=== PATIENT | female | born 1940 | race Caucasian/White ===

== ENCOUNTER 2023-07-20 15:57 | Inpatient (IN) | payer OTHER, MEDICAID ==
[~2023-07-20] VITALS: Ht 147.3 cm; Wt 52.2 kg
[2023-07-20 15:58] VITALS: BP_SYST 156; PULSE 76; RESP 18; TEMP 97.5; O2SAT 93
[2023-07-20 16:52] LABS: BASOPHILS # (AUTO) 0.1 K/uL (0.0-0.2); BASOPHILS % (AUTO) 1.2 % (0.0-2.0); EOSINOPHILS # (AUTO) 0.2 K/uL (0.0-0.4); EOSINOPHILS % (AUTO) 3.3 % (0.0-4.0); HEMATOCRIT 39.4 % (36-48); HEMOGLOBIN 13.7 g/dL (12.0-16.0); LYMPHOCYTES # (AUTO) 1.1 K/uL (1.0-5.5); LYMPHOCYTES % (AUTO) 18.9 % (20.5-51.5); MEAN CORPUSCULAR HEMOGLOBIN 33 pg (27-31); MEAN CORPUSCULAR HGB CONC 35 % (32-36); MEAN CORPUSCULAR VOLUME 94 fL (79.0-98.0); MONOCYTES # (AUTO) 0.4 K/uL (0.0-1.0); MONOCYTES % (AUTO) 7.3 % (1.7-9.3); NEUTROPHILS # (AUTO) 3.9 K/uL (1.8-7.7); NEUTROPHILS % (AUTO) 69.3 % (40.0-70.0); PLATELET COUNT (AUTO) 242 K/uL (130-430); RED BLOOD CELL COUNT(AUTO) 4.19 MIL/uL (4.2-6.2); RED CELL DISTRIBUTION WIDTH 13.3 % (9.0-15.0); WHITE BLOOD COUNT (AUTO) 5.7 K/uL (4.8-10.8)
[2023-07-20 16:59] LABS: ANION GAP 14 (5-15); CALCIUM 9.3 mg/dL (8.4-11.0); CARBON DIOXIDE 22 mmol/L (23-29); CHLORIDE 106 mmol/L (98-107); GLUCOSE 197 mg/dL (74-106); POTASSIUM 3.4 mmol/L (3.5-5.1); SODIUM SERUM 142 mmol/L (136-145); UREA NITROGEN, BLOOD 24 mg/dL (8-21)
[2023-07-20 17:01] LABS: INR 1.2 (0.8-1.2); PROTHROMBIN TIME 12.7 SECS (9.5-12.5)
[2023-07-20 17:07] LABS: CHOLESTEROL 245 mg/dL (<200); HDL CHOLESTEROL 56 mg/dL (>55); TRIGLYCERIDES 263 mg/dL (30-150)
[2023-07-20 17:21] LABS: HEMOGLOBIN A1C 7.35 % (<5.7)
[2023-07-20 17:37] LABS: BILIRUBIN,URINE NEGATIVE (NEGATIVE); COLOR,URINE YELLOW (YELLOW); GLUCOSE,URINE 3+ (NEGATIVE); KETONES,URINE NEGATIVE (NEGATIVE); NITRITE, URINE NEGATIVE (NEGATIVE); PROTEIN URINE 3+ (NEGATIVE); UROBILINOGEN,URINE 0.2 (0.2-1.0)
[2023-07-20 17:53] LABS: BARBITURATE, URINE NEGATIVE (NEG <=200); BENZODIAZEPINE, URINE NEGATIVE (NEG <=150); CANNABINOID, URINE NEGATIVE (NEG <=50); COCAINE, URINE NEGATIVE (NEG <=150); METHAMPHETAMINES SCREEN,URINE NEGATIVE (NEG <=500); OPIATE, URINE NEGATIVE (NEG <=100); PHENCYCLIDINE SCREEN,URINE NEGATIVE (NEG <=25); UR TRICYCLIC ANTIDEPRESSANTS NEGATIVE (NEG <=300); URINE AMPHETAMINE NEGATIVE (NEG <=500); URINE METHADONE NEGATIVE (NEG <=200); URINE OXYCODONE SCREEN NEGATIVE (NEG <=100)
[2023-07-20 17:55] LABS: BLOOD, URINE TRACE (NEGATIVE)
[2023-07-20 17:56] LABS: CLARITY/URINE HAZY (CLEAR); LEUKOCYTE ESTERASE ,URINE 2+ (NEGATIVE)
[2023-07-20 17:57] LABS: BACTERIA,URINE MODERATE /HPF (None Seen); RBC,URINE NONE SEEN /HPF (0-3); WBC,URINE 20-50 /HPF (0-3)
[2023-07-20 17:58] LABS: MUCUS,URINE None Seen /LPF (None Seen)
[2023-07-20] MEDS ORDERED: amLODIPine BESYLATE 5 MG TABLET PO ONE (18:00)
[2023-07-20] MEDS ORDERED: ASPI-1393 PO (18:20)
[2023-07-20] MEDS ORDERED: HYDR-4038 PO (18:20)
[2023-07-20] MEDS ORDERED: GLIP5TAB26 PO (18:20)
[2023-07-20] MEDS ORDERED: EMPA10TA PO (18:20)
[2023-07-20] MEDS ORDERED: OXYB5TAB16 PO (18:20)
[2023-07-20] MEDS ORDERED: OMEG-30 PO (18:20)
[2023-07-20] MEDS ORDERED: METO50TA7 PO (18:20)
[2023-07-20] MEDS ORDERED: VITD400 PO (18:20)
[2023-07-20] MEDS ORDERED: AMLO5TAB4 PO (18:20)
[2023-07-20] MEDS ORDERED: ENAL-79 PO (18:20)
[2023-07-20] MEDS ORDERED: PRO40 PO (18:20)
[2023-07-20] MEDS ORDERED: CYAN100010 PO (18:20)
[2023-07-20] MEDS ORDERED: CLOPIDOGREL BISULFATE 75 MG TABLET PO ONE (19:00)
[2023-07-20] MEDS ORDERED: ATORVASTATIN 20 MG TABLET PO ONE (19:00)
[2023-07-20] MEDS ORDERED: ASPIRIN 81 MG TABLET(ECOTRIN) PO ONE (19:00)
[2023-07-20] MEDS ORDERED: ATORVASTATIN 20 MG TABLET ONE ×2 (20:02→20:04)
[2023-07-20] MEDS ORDERED: HYDROcodone/ACETAMIN 10-325 MG TAB PO PRN (22:15)
[2023-07-20] MEDS ORDERED: LORazepam 2 MG/ML VIAL IVP PRN (22:15)
[2023-07-20] MEDS ORDERED: NALOXONE HCL 0.4 MG/ML AMP (NARCAN) IVP PRN ×2 (22:15)
[2023-07-20] MEDS ORDERED: HYDROcodone/ACETAMIN 5-325 MG TAB (NORCO/ VICODIN) PO PRN (22:15)
[2023-07-20] MEDS ORDERED: ACETAMINOPHEN 325 MG TABLET PO PRN (22:15)
[2023-07-20] MEDS ORDERED: ONDANSETRON HCL 4 MG/2 ML VIAL IVP PRN (22:15)
[2023-07-21 04:41] LABS: EOSINOPHILS # (AUTO) 0.2 K/uL (0.0-0.4); EOSINOPHILS % (AUTO) 3.6 % (0.0-4.0); HEMATOCRIT 37.5 % (36-48); HEMOGLOBIN 12.8 g/dL (12.0-16.0); LYMPHOCYTES # (AUTO) 0.9 K/uL (1.0-5.5); MEAN CORPUSCULAR HEMOGLOBIN 32 pg (27-31); MEAN CORPUSCULAR HGB CONC 34 % (32-36); MEAN CORPUSCULAR VOLUME 94 fL (79.0-98.0); MONOCYTES # (AUTO) 0.4 K/uL (0.0-1.0); MONOCYTES % (AUTO) 9.2 % (1.7-9.3); NEUTROPHILS % (AUTO) 66.2 % (40.0-70.0); PLATELET COUNT (AUTO) 230 K/uL (130-430); RED BLOOD CELL COUNT(AUTO) 3.99 MIL/uL (4.2-6.2); RED CELL DISTRIBUTION WIDTH 13.2 % (9.0-15.0); WHITE BLOOD COUNT (AUTO) 4.5 K/uL (4.8-10.8)
[2023-07-21 05:01] LABS: ANION GAP 10 (5-15); CARBON DIOXIDE 26 mmol/L (23-29); CHLORIDE 106 mmol/L (98-107); CREATININE 1.04 mg/dL (0.55-1.30); GLUCOSE 122 mg/dL (74-106); PHOSPHORUS 4.2 mg/dL (2.7-4.5); POTASSIUM 3.2 mmol/L (3.5-5.1); SODIUM SERUM 142 mmol/L (136-145); UREA NITROGEN, BLOOD 19 mg/dL (8-21)
[2023-07-21 06:31] VITALS: BP_SYST 181; PULSE 82; RESP 20; TEMP 97.7; O2SAT 100
[2023-07-21 08:00] VITALS: BP_SYST 173; PULSE 69; RESP 18; TEMP 98.2; O2SAT 99
[2023-07-21] MEDS ORDERED: METOPROLOL SUCCINATE 50 MG TAB.SR.24H (TOPROL XL) PO SCH (09:00)
[2023-07-21] MEDS ORDERED: FISH OIL PO SCH (09:00)
[2023-07-21] MEDS ORDERED: DHA PO SCH (09:00)
[2023-07-21] MEDS ORDERED: [UNRECOGNIZED DRUG - OTHER] PO SCH (09:00)
[2023-07-21] MEDS ORDERED: OMEGA PO SCH (09:00)
[2023-07-21] MEDS ORDERED: hydrALAZINE HCL 25 MG TABLET PO SCH (09:00)
[2023-07-21] MEDS ORDERED: EPA PO SCH (09:00)
[2023-07-21] MEDS: CHOLECALCIFEROL (VITAMIN D-3) 400 UNIT TABLET PO SCH ×2 (09:06→21:21)
[2023-07-21] MEDS: CYANOCOBALAMIN (VITAMIN B-12) 1,000 MCG TABLET PO SCH ×2 (09:06→21:19)
[2023-07-21] MEDS: amLODIPine BESYLATE 5 MG TABLET PO SCH (09:06)
[2023-07-21] MEDS: oxyBUTYnin chloride 5 MG TABLET PO SCH ×2 (09:07→21:21)
[2023-07-21] MEDS: ENOXAPARIN SODIUM 30 MG/0.3 ML SYRINGE SUBCUT SCH (09:08)
[2023-07-21] MEDS: ASPIRIN 81 MG TABLET(ECOTRIN) PO SCH (09:08)
[2023-07-21] MEDS: glipiZIDE XL 5 MG TAB ( GLUCOTROL XL) PO SCH ×3 (09:08→21:21)
[2023-07-21] MEDS ORDERED: lisinopriL 20 MG TABLET PO SCH (10:00)
[2023-07-21] MEDS ORDERED: ATORVASTATIN 20 MG TABLET PO ONE (10:00)
[2023-07-21] MEDS ORDERED: CLOPIDOGREL BISULFATE 75 MG TABLET PO ONE (10:00)
[2023-07-21] MEDS ORDERED: lisinopriL 20 MG TABLET PO ONE (10:00)
[2023-07-21 16:46] VITALS: BP_SYST 149; PULSE 73; RESP 17; TEMP 98; O2SAT 95
[2023-07-21 20:00] VITALS: BP_SYST 156; PULSE 73; RESP 18; TEMP 99; O2SAT 92
[2023-07-21] MEDS ORDERED: EMPAGLIFLOZIN 10 MG TABLET PO SCH (21:00)
[2023-07-21] MEDS: OMEGA-3/DHA/EPA/FISH OIL 1 GM CAPSULE PO SCH (21:19)
[2023-07-21] MEDS: CARVEDILOL 25 MG TABLET (COREG) PO SCH (21:21)
[2023-07-21] MEDS ORDERED: LORazepam 2 MG/ML VIAL IVP PRN (21:45)
[2023-07-21] MEDS ORDERED: ONDANSETRON HCL 4 MG/2 ML VIAL IVP PRN (21:45)
[2023-07-21] MEDS ORDERED: ACETAMINOPHEN 325 MG TABLET PO PRN (21:45)
[2023-07-21] MEDS ORDERED: INSULIN REGULAR, HUMAN 100 UNITS/ML, 3 ML VIAL (humuLIN R) SUBCUT PRN (21:45)
[2023-07-21] MEDS: NORMAL SALINE 5 ML DISP.SYRIN IVF SCH (22:00)
[2023-07-22] VITALS: BP_SYST 130; PULSE 68; RESP 16; TEMP 98.2; O2SAT 99
[2023-07-22 05:19] LABS: BASOPHILS % (AUTO) 1.1 % (0.0-2.0); EOSINOPHILS # (AUTO) 0.1 K/uL (0.0-0.4); EOSINOPHILS % (AUTO) 3.7 % (0.0-4.0); HEMOGLOBIN 12.3 g/dL (12.0-16.0); LYMPHOCYTES # (AUTO) 0.9 K/uL (1.0-5.5); MEAN CORPUSCULAR HEMOGLOBIN 32 pg (27-31); MEAN CORPUSCULAR HGB CONC 34 % (32-36); MEAN CORPUSCULAR VOLUME 94 fL (79.0-98.0); MONOCYTES # (AUTO) 0.4 K/uL (0.0-1.0); MONOCYTES % (AUTO) 11.9 % (1.7-9.3); NEUTROPHILS # (AUTO) 2.2 K/uL (1.8-7.7); NEUTROPHILS % (AUTO) 58.3 % (40.0-70.0); PLATELET COUNT (AUTO) 214 K/uL (130-430); RED BLOOD CELL COUNT(AUTO) 3.84 MIL/uL (4.2-6.2); RED CELL DISTRIBUTION WIDTH 13.6 % (9.0-15.0)
[2023-07-22 06:01] LABS: ANION GAP 12 (5-15); CALCIUM 8.9 mg/dL (8.4-11.0); CARBON DIOXIDE 24 mmol/L (23-29); CHLORIDE 105 mmol/L (98-107); CREATININE 1.35 mg/dL (0.55-1.30); GLUCOSE 105 mg/dL (74-106); PHOSPHORUS 4.8 mg/dL (2.7-4.5); POTASSIUM 3.4 mmol/L (3.5-5.1); SODIUM SERUM 141 mmol/L (136-145); UREA NITROGEN, BLOOD 19 mg/dL (8-21)
[2023-07-22] MEDS: NORMAL SALINE 5 ML DISP.SYRIN IVF SCH ×2 (06:05→14:00)
[2023-07-22 07:35] LABS: WHITE BLOOD COUNT (AUTO) 3.7 K/uL (4.8-10.8)
[2023-07-22 08:00] VITALS: BP_SYST 130; PULSE 72; RESP 18; TEMP 98.6; O2SAT 92; O2SAT 99
[2023-07-22] MEDS: OMEGA-3/DHA/EPA/FISH OIL 1 GM CAPSULE PO SCH (08:58)
[2023-07-22] MEDS: ENOXAPARIN SODIUM 30 MG/0.3 ML SYRINGE SUBCUT SCH (08:58)
[2023-07-22] MEDS ORDERED: CLOPIDOGREL BISULFATE 75 MG TABLET PO SCH (09:00)
[2023-07-22] MEDS ORDERED: lisinopriL 20 MG TABLET PO SCH (09:00)
[2023-07-22] MEDS: CYANOCOBALAMIN (VITAMIN B-12) 1,000 MCG TABLET PO SCH (09:00)
[2023-07-22] MEDS: CHOLECALCIFEROL (VITAMIN D-3) 400 UNIT TABLET PO SCH (09:00)
[2023-07-22] MEDS: CARVEDILOL 25 MG TABLET (COREG) PO SCH (09:00)
[2023-07-22] MEDS ORDERED: PANTOPRAZOLE SODIUM 40 MG TAB PO SCH (09:00)
[2023-07-22] MEDS ORDERED: ATORVASTATIN 20 MG TABLET PO SCH (09:00)
[2023-07-22] MEDS: ASPIRIN 81 MG TABLET(ECOTRIN) PO SCH (09:01)
[2023-07-22] MEDS: glipiZIDE XL 5 MG TAB ( GLUCOTROL XL) PO SCH ×2 (09:01→14:50)
[2023-07-22] MEDS: amLODIPine BESYLATE 5 MG TABLET PO SCH (09:01)
[2023-07-22] MEDS: oxyBUTYnin chloride 5 MG TABLET PO SCH (09:01)
[2023-07-22] MEDS ORDERED: POTASSIUM CHLORIDE 20 MEQ TABLET.ER PO ONE (09:15)
[2023-07-22 12:00] VITALS: BP_SYST 127; PULSE 78; RESP 18; TEMP 98.2; O2SAT 93
[2023-07-22] MEDS ORDERED: APIX2.5T PO (12:38)
[2023-07-22] MEDS ORDERED: LISI20TA30 PO (12:38)
[2023-07-22] MEDS ORDERED: LIP20 PO (12:38)
[2023-07-22] MEDS ORDERED: OMEG100036 PO (12:38)
[2023-07-22] MEDS ORDERED: COR25 PO (12:38)
[2023-07-22 15:35] VITALS: BP_SYST 137; PULSE 77; RESP 18; TEMP 98.4; O2SAT 94
[2023-07-22 16:00] VITALS: BP_SYST 119; PULSE 64; RESP 16; TEMP 98; O2SAT 95
[2023-07-22] MEDS ORDERED: FLU VACC QS2023-24(6MOS UP)/PF 0.5 ML/SYR SYRINGE I.M. ONE (16:45)
[2023-07-22] MEDS ORDERED: APIXABAN 2.5 MG TABLET PO SCH (21:00)
== END 2023-07-22 17:00 | disposition home health service (06) | DRG 65 ==
LOC: SED 15:57 → STU 15:58
PROVIDERS: ADMIT Preventive Medicine Preventive Medicine/Occupational Environmental Medicine; ATTEND Preventive Medicine Preventive Medicine/Occupational Environmental Medicine
DX: I63.9 Cerebral infarction, unspecified (principal); I50.32 Chronic diastolic (congestive) heart failure; N39.0 Urinary tract infection, site not specified; N17.9 Acute kidney failure, unspecified; I48.91 Unspecified atrial fibrillation; E78.5 Hyperlipidemia, unspecified; E11.9 Type 2 diabetes mellitus without complications; I25.10 Atherosclerotic heart disease of native coronary artery without angina pectoris; I11.0 Hypertensive heart disease with heart failure; B96.89 Other specified bacterial agents as the cause of diseases classified elsewhere; D72.819 Decreased white blood cell count, unspecified; I27.20 Pulmonary hypertension, unspecified; R29.702 NIHSS score 2; E55.9 Vitamin D deficiency, unspecified; E78.2 Mixed hyperlipidemia; E87.6 Hypokalemia; K21.9 Gastro-esophageal reflux disease without esophagitis; Z90.49 Acquired absence of other specified parts of digestive tract; Z88.5 Allergy status to narcotic agent
CPT/HCPCS: 36415; 70450; 70496; 70498; 70551; 71045; 76376; 80048; 80061; 80307; 81000; 81001; 81015; 82962; 83037; 83735; 84100; 84484; 85025; 85610; 85730; 86886; 86900; 86901; 87086; 93005; 93306; 97116-GP; 97530-GP; 99291; 99292; G0378; J1650